=== PATIENT | female | born 1970 | race Caucasian/White ===

== ENCOUNTER 2024-12-13 10:29 | Outpatient (CLI) | payer OTHER, SELFPAY ==
[2024-12-13 10:51] LABS: Estimated Glomerular Filt Rate > 60
== END 2024-12-13 10:30 | disposition home or self-care (01) ==
PROVIDERS: PCP Nurse Practitioner Family; Visit Provider Nurse Practitioner Family
DX: J32.9 Chronic sinusitis, unspecified (principal)
CPT/HCPCS: 70487; Q9967